=== PATIENT | male | born 1990 | race Caucasian/White ===

== ENCOUNTER 2017-11-05 17:06 | Emergency (ER) | payer MEDICAID ==
[2017-11-05] MEDS ORDERED: Acetaminophen/HYDROcodone 325-10 MG Tab PO ONE (18:05)
[2017-11-05] MEDS ORDERED: Acetaminophen/HYDROcodone 325-5 MG Tab PO PRN (18:06)
[2017-11-05] MEDS ORDERED: Acetaminophen/HYDROcodone 325-5 MG Tab PO ONE (18:40)
--- NOTE | 2017-11-06 13:27 | ER ---
DATE SEEN: 11/05/2017 The patient was seen at 1715 hours. /[id number] CARLITO/VERONICA
--- NOTE | 2017-11-07 07:02 | ER ---
DATE SEEN: 11/05/2017 HISTORY OF PRESENT ILLNESS: This 27-year-old comes in with a two months history of a traumatic fracture of the crown of tooth #7. He has moderate progressively increased pain in this tooth. Otherwise, the patient is healthy. He smokes. He is overweight. Has no diabetes, heart disease, high blood pressure, or other serious illnesses. The patient is here with his . MEDICATIONS: Presently, he is not on any medicines. ALLERGIES: None. REVIEW OF SYSTEMS: Negative. PHYSICAL EXAMINATION: VITAL SIGNS: Blood pressure 165/109, heart rate 98, respirations 14, oxygen saturation 100%, and temperature is 36.6 degrees centigrade. GENERAL: Very pleasant, sociable, overweight man in moderate distress, but he is quite stoic. HEENT: Tooth #7 has the crown, but an upside down concave cavity of the tooth approximately 2 mm from the crown to the base. It is mildly tender. Gingiva not tender. He has otherwise good hygiene of teeth, except for the smoking discoloration and effects of smoking on his teeth. No maxillofacial tenderness. NECK: No thyromegaly. No masses in neck. No cervical adenopathy. Neck is supple. LUNGS: Clear without rales. HEART: S1, S2. No murmur. S2 greater than S1. ABDOMEN: Nontender. EXTREMITIES: Without abnormality. No edema. ASSESSMENT: #7 tooth dental crown pulpitis with loss of integrity enamel. PLAN: 1. Treat with Vicodin 8 tablets one q.6 hours p.r.n. pain. 2. Appointment for [facility] given to the patient, with information for [facility] given to the patient. Discussed the need to be promptly available earlier than the [facility] opens, so he is not the last in line to get the care on the day he goes to [place] and/or other [facility]. The patient is grateful. 3. Ibuprofen 600 mg and Tylenol 1000 mg together every 6 hours for pain. 4. Nicorette, no more than 20 lozenges per day, every 24 hours. Use Nicoderm patches. Stop smoking. 5. For breakthrough pain, use the hydrocodone, 8 tablets prescribed. 6. Amoxil 875 mg b.i.d. DIAGNOSIS: Fractured crown with dental pain. /[id number] CARLITO/VERONICA COOPERD
== END 2017-11-05 18:29 | disposition home or self-care (01) ==
LOC: FB.ED 17:06
DX: S02.5XXD Fracture of tooth (traumatic), subsequent encounter for fracture with routine healing (principal); E66.3 Overweight; F17.200 Nicotine dependence, unspecified, uncomplicated; X58.XXXD Exposure to other specified factors, subsequent encounter
CPT/HCPCS: 99282; A9270